=== PATIENT | male | born 2000 | race Caucasian/White ===

== ENCOUNTER → 2020-01-31 | Outpatient (CLI) | payer BC, MEDICAID | LOC: ZCOL.LAB 13:29 | DX: R19.4 Change in bowel habit (principal) ==

== ENCOUNTER 2020-02-13 18:07 | Emergency (ER) | payer BC, MEDICAID ==
[~2020-02-13] VITALS: Ht 165.1 cm; Wt 81.8 kg
[2020-02-13 18:21] LABS: COLLECTION METHOD CLEAN CATCH
[2020-02-13 18:32] LABS: PH 6 (5-8); SQUAMOUS EPITHELIAL None Seen /hpf; URINE APPEARANCE Clear; URINE BACTERIA None Seen /hpf; URINE BILIRUBIN Negative (NEGATIVE); URINE BLOOD 1+ (NEGATIVE); URINE COLOR Straw; URINE GLUCOSE 3+ (NEGATIVE); URINE KETONE Negative (NEGATIVE); URINE LEUKOCYTE ESTERASE Negative (NEGATIVE); URINE NITRATE Negative (NEGATIVE); URINE PROTEIN(semi-quant) Negative (NEGATIVE); URINE RBC 0-2 /hpf; URINE UROBILINOGEN Negative (NEGATIVE)
[2020-02-13 18:54] LABS: TRICYCLIC ANTIDEPRESS URINE NEGATIVE
[2020-02-13 19:33] LABS: BASO % 0.5 % (0.0-2.0); EOS # 0.1 (0.0-0.7); EOS % 0.8 % (0-4.0); GRAN # 4.9 (1.4-6.5); GRAN % 56.3 % (42.2-75.2); HEMATOCRIT 48.4 % (42.0-52.0); HEMOGLOBIN 16.6 g/dl (13.5-18.0); LYMPH # 2.7 (1.2-3.4); LYMPH % 30.9 % (20.0-51.0); MEAN CELL VOLUME 95 fl (80.0-100.0); MEAN CORPUSCULAR HEMOGLOBIN 33 pg (27.0-31.0); MEAN CORPUSCULAR HGB CONC 34 g/dl (33.0-37.0); MEAN PLATELET VOLUME 12.6 fl (7.4-10.4); PLATELET COUNT 184 K/mm3 (130-400); RED BLOOD COUNT 5.11 M/mm3 (4.20-5.60); REDCELL DISTRIBUTION WIDTH-CV 13.6 % (11.5-14.5)
[2020-02-13 19:43] LABS: ALANINE AMINOTRANSFERASE 62 U/L (4-49); ALBUMIN 4.7 gm/dL (3.5-5.0); ALKALINE PHOSPHATASE 144 U/L (50-136); ANION GAP 10 mmol/L (7-16); AST,SGOT 40 U/L (15-37); BILIRUBIN,TOTAL 0.4 mg/dL (0.0-1.0); BLOOD UREA NITROGEN 13 mg/dL (9-20); CALCIUM 9.6 mg/dL (8.4-10.2); CARBON DIOXIDE 28 mmol/L (22-30); CHLORIDE 102 mmol/L (98-107); CREATININE, serum 0.91 (0.66-1.25); GLUCOSE 182 mg/dL (74-106); POTASSIUM 4.1 mmol/L (3.4-5.0); SODIUM 140 mmol/L (137-145); TOTAL PROTEIN 7.8 gm/dL (6.4-8.2)
[2020-02-13 19:44] LABS: ACETAMINOPHEN < 10 ug/mL (10-30); ALCOHOL(ethanol),MEDICAL < 10 mg/dL; SALICYLATE < 1.0 mg/dL
[2020-02-14 00:05] VITALS: TEMP 98.4
[2020-02-14 04:55] VITALS: BP 144/87; PULSE 94
== END 2020-02-14 04:55 ==
LOC: COL.ER 18:07
PROVIDERS: Nurse Practitioner
DX: R45.851 Suicidal ideations (principal); F32.9 Major depressive disorder, single episode, unspecified; Z20.828 Contact with and (suspected) exposure to other viral communicable diseases

== ENCOUNTER 2020-02-26 12:42 | Emergency (ER) | payer BC, MEDICAID ==
[~2020-02-26] VITALS: Ht 167.6 cm; Wt 81.8 kg
[2020-02-26 13:04] VITALS: TEMP 98.2
[2020-02-26 13:31] LABS: COLLECTION METHOD CLEAN CATCH
[2020-02-26 13:45] LABS: BASO # 0.1 (0.0-0.2); BASO % 1.1 % (0.0-2.0); EOS # 0.1 (0.0-0.7); EOS % 1.8 % (0-4.0); GRAN % 49.2 % (42.2-75.2); HEMATOCRIT 45.2 % (42.0-52.0); HEMOGLOBIN 15.7 g/dl (13.5-18.0); LYMPH # 2.3 (1.2-3.4); LYMPH % 37.2 % (20.0-51.0); MEAN CELL VOLUME 91 fl (80.0-100.0); MEAN CORPUSCULAR HEMOGLOBIN 32 pg (27.0-31.0); MEAN CORPUSCULAR HGB CONC 35 g/dl (33.0-37.0); MEAN PLATELET VOLUME 12.3 fl (7.4-10.4); MONO # 0.6 (0.1-0.6); MONO % 10.5 % (1.7-9.3); PLATELET COUNT 212 K/mm3 (130-400); RED BLOOD COUNT 4.96 M/mm3 (4.20-5.60); REDCELL DISTRIBUTION WIDTH-CV 13.2 % (11.5-14.5)
[2020-02-26 13:48] LABS: MUCOUS Present /lpf; PH 6 (5-8); SQUAMOUS EPITHELIAL None Seen /hpf; URINE APPEARANCE Clear; URINE BACTERIA None Seen /hpf; URINE BILIRUBIN Negative (NEGATIVE); URINE BLOOD Negative (NEGATIVE); URINE COLOR Straw; URINE GLUCOSE Negative (NEGATIVE); URINE KETONE Negative (NEGATIVE); URINE LEUKOCYTE ESTERASE Negative (NEGATIVE); URINE NITRATE Negative (NEGATIVE); URINE PROTEIN(semi-quant) Negative (NEGATIVE); URINE RBC 0-2 /hpf; URINE UROBILINOGEN Negative (NEGATIVE)
[2020-02-26 13:57] LABS: ALANINE AMINOTRANSFERASE 92 U/L (4-49); ALBUMIN 4.5 gm/dL (3.5-5.0); ALKALINE PHOSPHATASE 125 U/L (50-136); ANION GAP 11 mmol/L (7-16); AST,SGOT 59 U/L (15-37); BILIRUBIN,TOTAL 0.7 mg/dL (0.0-1.0); BLOOD UREA NITROGEN 11 mg/dL (9-20); CALCIUM 9.6 mg/dL (8.4-10.2); CARBON DIOXIDE 25 mmol/L (22-30); CHLORIDE 103 mmol/L (98-107); CREATININE, serum 0.82 (0.66-1.25); GLUCOSE 116 mg/dL (74-106); SODIUM 138 mmol/L (137-145); TOTAL PROTEIN 7.7 gm/dL (6.4-8.2)
[2020-02-26 14:05] LABS: TRICYCLIC ANTIDEPRESS URINE NEGATIVE
[2020-02-26 14:14] LABS: ACETAMINOPHEN < 10 ug/mL (10-30); ALCOHOL(ethanol),MEDICAL < 10 mg/dL; SALICYLATE < 1.0 mg/dL
[2020-02-26 22:42] VITALS: BP 143/92; PULSE 100
== END 2020-02-26 22:41 | disposition short-term general hospital (02) ==
LOC: COL.ER 12:42
PROVIDERS: Nurse Practitioner
DX: R45.851 Suicidal ideations (principal); F17.200 Nicotine dependence, unspecified, uncomplicated

== ENCOUNTER 2020-03-12 10:27 | Emergency (ER) | payer BC, MEDICAID ==
[~2020-03-12] VITALS: Ht 162.6 cm; Wt 81.8 kg
[2020-03-12 10:38] VITALS: BP 140/77; TEMP 97.9
[2020-03-12 10:52] LABS: COLLECTION METHOD CLEAN CATCH
[2020-03-12 11:02] LABS: PH 5 (5-8); SQUAMOUS EPITHELIAL None Seen /hpf; URINE APPEARANCE Clear; URINE BACTERIA None Seen /hpf; URINE BILIRUBIN Negative (NEGATIVE); URINE BLOOD 1+ (NEGATIVE); URINE COLOR Yellow; URINE GLUCOSE Negative (NEGATIVE); URINE KETONE Negative (NEGATIVE); URINE LEUKOCYTE ESTERASE Negative (NEGATIVE); URINE NITRATE Negative (NEGATIVE); URINE PROTEIN(semi-quant) Negative (NEGATIVE); URINE RBC 0-2 /hpf; URINE UROBILINOGEN Negative (NEGATIVE)
[2020-03-12 11:35] LABS: TRICYCLIC ANTIDEPRESS URINE NEGATIVE
[2020-03-12 12:35] LABS: BASO % 0.7 % (0.0-2.0); EOS # 0.2 (0.0-0.7); EOS % 2.7 % (0-4.0); GRAN # 3.2 (1.4-6.5); GRAN % 53.6 % (42.2-75.2); HEMATOCRIT 47.4 % (42.0-52.0); MEAN CELL VOLUME 92 fl (80.0-100.0); MEAN CORPUSCULAR HEMOGLOBIN 31 pg (27.0-31.0); MEAN CORPUSCULAR HGB CONC 34 g/dl (33.0-37.0); MEAN PLATELET VOLUME 12.2 fl (7.4-10.4); MONO # 0.5 (0.1-0.6); MONO % 8.3 % (1.7-9.3); PLATELET COUNT 224 K/mm3 (130-400); RED BLOOD COUNT 5.15 M/mm3 (4.20-5.60); REDCELL DISTRIBUTION WIDTH-CV 13.1 % (11.5-14.5)
[2020-03-12 13:01] LABS: ALCOHOL(ethanol),MEDICAL < 10 mg/dL
[2020-03-12 14:17] VITALS: PULSE 93
[2020-03-12 14:29] LABS: ALANINE AMINOTRANSFERASE 65 U/L (4-49); ALBUMIN 4.8 gm/dL (3.5-5.0); ALKALINE PHOSPHATASE 129 U/L (50-136); ANION GAP 13 mmol/L (7-16); AST,SGOT 60 U/L (15-37); BILIRUBIN,TOTAL 0.6 mg/dL (0.0-1.0); BLOOD UREA NITROGEN 12 mg/dL (9-20); CALCIUM 10.3 mg/dL (8.4-10.2); CARBON DIOXIDE 25 mmol/L (22-30); CHLORIDE 103 mmol/L (98-107); CREATININE, serum 0.99 (0.66-1.25); GLUCOSE 83 mg/dL (74-106); POTASSIUM 4.1 mmol/L (3.4-5.0); SODIUM 142 mmol/L (137-145); TOTAL PROTEIN 8.6 gm/dL (6.4-8.2)
[2020-03-12 14:40] LABS: ACETAMINOPHEN < 10 ug/mL (10-30); SALICYLATE < 1.0 mg/dL
== END 2020-03-12 14:10 | disposition home or self-care (01) ==
LOC: COL.ER 10:27
PROVIDERS: Physician Assistant
DX: R45.851 Suicidal ideations (principal); F17.210 Nicotine dependence, cigarettes, uncomplicated

== ENCOUNTER 2020-03-16 13:14 | Emergency (ER) | payer BC, MEDICAID ==
[~2020-03-16] VITALS: Ht 165.1 cm; Wt 81.8 kg
[2020-03-16 14:01] LABS: COLLECTION METHOD CLEAN CATCH
[2020-03-16 14:11] LABS: PH 6 (5-8); SQUAMOUS EPITHELIAL None Seen /hpf; URINE APPEARANCE Clear; URINE BACTERIA None Seen /hpf; URINE BILIRUBIN Negative (NEGATIVE); URINE BLOOD Negative (NEGATIVE); URINE COLOR Yellow; URINE GLUCOSE Negative (NEGATIVE); URINE KETONE Negative (NEGATIVE); URINE LEUKOCYTE ESTERASE Negative (NEGATIVE); URINE NITRATE Negative (NEGATIVE); URINE PROTEIN(semi-quant) Negative (NEGATIVE); URINE RBC 0-2 /hpf; URINE UROBILINOGEN Negative (NEGATIVE)
[2020-03-16 14:16] LABS: BASO # 0.1 (0.0-0.2); BASO % 0.8 % (0.0-2.0); EOS # 0.2 (0.0-0.7); EOS % 2.2 % (0-4.0); GRAN # 3.8 (1.4-6.5); GRAN % 43.3 % (42.2-75.2); HEMATOCRIT 43.2 % (42.0-52.0); LYMPH # 3.7 (1.2-3.4); LYMPH % 42.7 % (20.0-51.0); MEAN CELL VOLUME 89 fl (80.0-100.0); MEAN CORPUSCULAR HEMOGLOBIN 31 pg (27.0-31.0); MEAN CORPUSCULAR HGB CONC 35 g/dl (33.0-37.0); MEAN PLATELET VOLUME 11.3 fl (7.4-10.4); MONO # 0.9 (0.1-0.6); MONO % 10.4 % (1.7-9.3); PLATELET COUNT 296 K/mm3 (130-400); RED BLOOD COUNT 4.84 M/mm3 (4.20-5.60); REDCELL DISTRIBUTION WIDTH-CV 12.7 % (11.5-14.5)
[2020-03-16 14:20] LABS: TRICYCLIC ANTIDEPRESS URINE NEGATIVE
[2020-03-16 14:39] LABS: ALCOHOL(ethanol),MEDICAL < 10 mg/dL
[2020-03-16 14:48] LABS: ACETAMINOPHEN < 10 ug/mL (10-30); ALANINE AMINOTRANSFERASE 59 U/L (4-49); ALBUMIN 4.5 gm/dL (3.5-5.0); ALKALINE PHOSPHATASE 122 U/L (50-136); ANION GAP 12 mmol/L (7-16); AST,SGOT 38 U/L (15-37); BILIRUBIN,TOTAL 0.7 mg/dL (0.0-1.0); BLOOD UREA NITROGEN 12 mg/dL (9-20); CALCIUM 9.5 mg/dL (8.4-10.2); CARBON DIOXIDE 23 mmol/L (22-30); CHLORIDE 104 mmol/L (98-107); CREATININE, serum 1.03 (0.66-1.25); GLUCOSE 82 mg/dL (74-106); POTASSIUM 3.7 mmol/L (3.4-5.0); SALICYLATE < 1.0 mg/dL; SODIUM 140 mmol/L (137-145)
[2020-03-16 19:15] VITALS: BP 134/88; PULSE 90; TEMP 97.9
== END 2020-03-16 19:15 | disposition home or self-care (01) ==
LOC: COL.ER 13:14
PROVIDERS: Physician Assistant
DX: R45.851 Suicidal ideations (principal); F17.210 Nicotine dependence, cigarettes, uncomplicated

== ENCOUNTER 2020-04-27 20:09 | Emergency (ER) | payer MEDICAID ==
[~2020-04-27] VITALS: Ht 165.1 cm; Wt 81.8 kg
[2020-04-27 20:52] LABS: BASO # 0.1 (0.0-0.2); BASO % 0.8 % (0.0-2.0); EOS # 0.1 (0.0-0.7); EOS % 1.9 % (0-4.0); GRAN # 4.1 (1.4-6.5); GRAN % 55.6 % (42.2-75.2); HEMATOCRIT 46.8 % (42.0-52.0); HEMOGLOBIN 15.7 g/dl (13.5-18.0); LYMPH # 2.3 (1.2-3.4); LYMPH % 31.4 % (20.0-51.0); MEAN CELL VOLUME 91 fl (80.0-100.0); MEAN CORPUSCULAR HEMOGLOBIN 30 pg (27.0-31.0); MEAN CORPUSCULAR HGB CONC 34 g/dl (33.0-37.0); MEAN PLATELET VOLUME 12.6 fl (7.4-10.4); MONO # 0.8 (0.1-0.6); MONO % 10.2 % (1.7-9.3); PLATELET COUNT 224 K/mm3 (130-400); RED BLOOD COUNT 5.16 M/mm3 (4.20-5.60)
[2020-04-27 21:02] LABS: ALANINE AMINOTRANSFERASE 124 U/L (4-49); ALBUMIN 4.8 gm/dL (3.5-5.0); ALKALINE PHOSPHATASE 120 U/L (50-136); ANION GAP 12 mmol/L (7-16); AST,SGOT 60 U/L (15-37); BILIRUBIN,TOTAL 0.7 mg/dL (0.0-1.0); BLOOD UREA NITROGEN 18 mg/dL (9-20); CALCIUM 9.6 mg/dL (8.4-10.2); CARBON DIOXIDE 21 mmol/L (22-30); CHLORIDE 105 mmol/L (98-107); CREATININE, serum 0.89 (0.66-1.25); GLUCOSE 112 mg/dL (74-106); POTASSIUM 4.3 mmol/L (3.4-5.0); SODIUM 139 mmol/L (137-145); TOTAL PROTEIN 8.3 gm/dL (6.4-8.2)
[2020-04-27 21:02] LABS: COLLECTION METHOD CLEAN CATCH
[2020-04-27 21:03] LABS: ACETAMINOPHEN < 10 ug/mL (10-30); ALCOHOL(ethanol),MEDICAL < 10 mg/dL; SALICYLATE < 1.0 mg/dL
[2020-04-27 21:10] LABS: MUCOUS Present /lpf; PH 7 (5-8); SQUAMOUS EPITHELIAL None Seen /hpf; URINE APPEARANCE Clear; URINE BACTERIA None Seen /hpf; URINE BILIRUBIN Negative (NEGATIVE); URINE BLOOD Negative (NEGATIVE); URINE COLOR Yellow; URINE GLUCOSE Negative (NEGATIVE); URINE KETONE Negative (NEGATIVE); URINE LEUKOCYTE ESTERASE Negative (NEGATIVE); URINE NITRATE Negative (NEGATIVE); URINE PROTEIN(semi-quant) Negative (NEGATIVE); URINE RBC 0-2 /hpf; URINE UROBILINOGEN Negative (NEGATIVE)
[2020-04-27 21:25] LABS: TRICYCLIC ANTIDEPRESS URINE NEGATIVE
[2020-04-27 21:32] LABS: TSH w REFLEX 0.959 uIU/mL (0.465-4.680)
[2020-04-28 07:48] VITALS: BP 167/92; PULSE 96; TEMP 98
== END 2020-04-28 07:50 ==
LOC: COL.ER 20:09
PROVIDERS: Emergency Medicine
DX: R45.851 Suicidal ideations (principal); Z20.822 Contact with and (suspected) exposure to COVID-19

== ENCOUNTER 2020-05-10 16:11 | Emergency (ER) | payer MEDICAID ==
[~2020-05-10] VITALS: Ht 165.1 cm; Wt 95.5 kg
[2020-05-10 16:26] VITALS: TEMP 97.8
[2020-05-10 16:59] LABS: COLLECTION METHOD CLEAN CATCH
[2020-05-10 17:10] LABS: PH 6 (5-8); SQUAMOUS EPITHELIAL None Seen /hpf; URINE APPEARANCE Clear; URINE BACTERIA None Seen /hpf; URINE BILIRUBIN Negative (NEGATIVE); URINE BLOOD Negative (NEGATIVE); URINE COLOR Straw; URINE GLUCOSE Negative (NEGATIVE); URINE KETONE Negative (NEGATIVE); URINE LEUKOCYTE ESTERASE Negative (NEGATIVE); URINE NITRATE Negative (NEGATIVE); URINE PROTEIN(semi-quant) Negative (NEGATIVE); URINE RBC 0-2 /hpf; URINE UROBILINOGEN Negative (NEGATIVE)
[2020-05-10 17:23] LABS: BASO # 0.1 (0.0-0.2); BASO % 0.9 % (0.0-2.0); EOS % 0.3 % (0-4.0); GRAN # 3.8 (1.4-6.5); GRAN % 59.4 % (42.2-75.2); HEMATOCRIT 48.6 % (42.0-52.0); HEMOGLOBIN 16.5 g/dl (13.5-18.0); LYMPH # 1.9 (1.2-3.4); LYMPH % 30.5 % (20.0-51.0); MEAN CELL VOLUME 89 fl (80.0-100.0); MEAN CORPUSCULAR HEMOGLOBIN 30 pg (27.0-31.0); MEAN CORPUSCULAR HGB CONC 34 g/dl (33.0-37.0); MONO # 0.6 (0.1-0.6); MONO % 8.7 % (1.7-9.3); PLATELET COUNT 231 K/mm3 (130-400); RED BLOOD COUNT 5.46 M/mm3 (4.20-5.60); REDCELL DISTRIBUTION WIDTH-CV 13.9 % (11.5-14.5)
[2020-05-10 17:28] LABS: TRICYCLIC ANTIDEPRESS URINE NEGATIVE
[2020-05-10 17:35] LABS: ALANINE AMINOTRANSFERASE 107 U/L (4-49); ALBUMIN 5.1 gm/dL (3.5-5.0); ALKALINE PHOSPHATASE 116 U/L (50-136); ANION GAP 10 mmol/L (7-16); AST,SGOT 50 U/L (15-37); BILIRUBIN,TOTAL 0.9 mg/dL (0.0-1.0); BLOOD UREA NITROGEN 7 mg/dL (9-20); CALCIUM 9.9 mg/dL (8.4-10.2); CARBON DIOXIDE 26 mmol/L (22-30); CHLORIDE 104 mmol/L (98-107); CREATININE, serum 0.95 (0.66-1.25); GLUCOSE 87 mg/dL (74-106); POTASSIUM 3.7 mmol/L (3.4-5.0); SODIUM 140 mmol/L (137-145); TOTAL PROTEIN 8.8 gm/dL (6.4-8.2)
[2020-05-10 17:40] LABS: ACETAMINOPHEN < 10 ug/mL (10-30); ALCOHOL(ethanol),MEDICAL < 10 mg/dL; SALICYLATE < 1.0 mg/dL
[2020-05-10 19:00] VITALS: BP 130/80; PULSE 88
== END 2020-05-10 19:00 | disposition home or self-care (01) ==
LOC: COL.ER 16:11
PROVIDERS: Nurse Practitioner
DX: R45.851 Suicidal ideations (principal); Z87.891 Personal history of nicotine dependence

== ENCOUNTER 2020-06-01 10:02 | Emergency (ER) | payer MEDICAID ==
[~2020-06-01] VITALS: Ht 165.1 cm; Wt 95.5 kg
[2020-06-01 10:10] VITALS: BP 132/82; TEMP 98
[2020-06-01] MEDS ORDERED: AMOXICILLIN 8751 TAB PO (11:20)
[2020-06-01 11:38] VITALS: PULSE 102
== END 2020-06-01 11:38 | disposition home or self-care (01) ==
LOC: COL.ER 10:02
DX: S61.253A Open bite of left middle finger without damage to nail, initial encounter (principal); W50.3XXA Accidental bite by another person, initial encounter

== ENCOUNTER 2020-06-01 19:06 | Emergency (ER) | payer MEDICAID ==
[~2020-06-01] VITALS: Ht 165.1 cm; Wt 95.5 kg
[~2020-06-01 19:06] MED LIST: AMOXICILLIN 8751 TAB PO
[2020-06-01 19:08] VITALS: TEMP 97.1
[2020-06-01 19:44] LABS: COLLECTION METHOD CLEAN CATCH
[2020-06-01 19:51] LABS: BASO # 0.1 (0.0-0.2); BASO % 0.7 % (0.0-2.0); EOS % 0.4 % (0-4.0); GRAN # 3.8 (1.4-6.5); GRAN % 56.1 % (42.2-75.2); HEMATOCRIT 49.4 % (42.0-52.0); HEMOGLOBIN 16.9 g/dl (13.5-18.0); LYMPH # 2.4 (1.2-3.4); MEAN CELL VOLUME 89 fl (80.0-100.0); MEAN CORPUSCULAR HEMOGLOBIN 30 pg (27.0-31.0); MEAN CORPUSCULAR HGB CONC 34 g/dl (33.0-37.0); MEAN PLATELET VOLUME 12.7 fl (7.4-10.4); MONO # 0.5 (0.1-0.6); MONO % 7.7 % (1.7-9.3); PLATELET COUNT 182 K/mm3 (130-400); RED BLOOD COUNT 5.58 M/mm3 (4.20-5.60); REDCELL DISTRIBUTION WIDTH-CV 13.7 % (11.5-14.5)
[2020-06-01 19:52] LABS: PH 7 (5-8); SQUAMOUS EPITHELIAL None Seen /hpf; URINE APPEARANCE Clear; URINE BACTERIA Rare /hpf; URINE BILIRUBIN Negative (NEGATIVE); URINE BLOOD Negative (NEGATIVE); URINE COLOR Yellow; URINE GLUCOSE Negative (NEGATIVE); URINE KETONE Negative (NEGATIVE); URINE LEUKOCYTE ESTERASE Negative (NEGATIVE); URINE NITRATE Negative (NEGATIVE); URINE PROTEIN(semi-quant) Negative (NEGATIVE); URINE RBC 0-2 /hpf; URINE UROBILINOGEN Negative (NEGATIVE)
[2020-06-01 19:59] LABS: ALANINE AMINOTRANSFERASE 100 U/L (4-49); ALBUMIN 4.8 gm/dL (3.5-5.0); ALKALINE PHOSPHATASE 118 U/L (50-136); ANION GAP 12 mmol/L (7-16); AST,SGOT 53 U/L (15-37); BILIRUBIN,TOTAL 0.7 mg/dL (0.0-1.0); BLOOD UREA NITROGEN 8 mg/dL (9-20); CALCIUM 9.6 mg/dL (8.4-10.2); CARBON DIOXIDE 25 mmol/L (22-30); CHLORIDE 103 mmol/L (98-107); CREATININE, serum 1.02 (0.66-1.25); GLUCOSE 103 mg/dL (74-106); POTASSIUM 3.5 mmol/L (3.4-5.0); SODIUM 141 mmol/L (137-145); TOTAL PROTEIN 7.9 gm/dL (6.4-8.2)
[2020-06-01 20:03] LABS: ACETAMINOPHEN < 10 ug/mL (10-30); ALCOHOL(ethanol),MEDICAL < 10 mg/dL; SALICYLATE < 1.0 mg/dL
[2020-06-01 20:19] LABS: TRICYCLIC ANTIDEPRESS URINE NEGATIVE
[2020-06-02 00:07] LABS: BASO % 0.4 % (0.0-2.0); EOS # 0.1 (0.0-0.7); EOS % 0.7 % (0-4.0); GRAN # 3.2 (1.4-6.5); GRAN % 43.9 % (42.2-75.2); HEMATOCRIT 48.3 % (42.0-52.0); HEMOGLOBIN 16.6 g/dl (13.5-18.0); LYMPH # 3.5 (1.2-3.4); LYMPH % 47.4 % (20.0-51.0); MEAN CELL VOLUME 88 fl (80.0-100.0); MEAN CORPUSCULAR HEMOGLOBIN 30 pg (27.0-31.0); MEAN CORPUSCULAR HGB CONC 34 g/dl (33.0-37.0); MEAN PLATELET VOLUME 12.7 fl (7.4-10.4); MONO # 0.6 (0.1-0.6); MONO % 7.5 % (1.7-9.3); PLATELET COUNT 194 K/mm3 (130-400); RED BLOOD COUNT 5.51 M/mm3 (4.20-5.60); REDCELL DISTRIBUTION WIDTH-CV 13.7 % (11.5-14.5)
[2020-06-02 00:18] LABS: ALANINE AMINOTRANSFERASE 92 U/L (4-49); ALBUMIN 4.4 gm/dL (3.5-5.0); ALKALINE PHOSPHATASE 124 U/L (50-136); ANION GAP 12 mmol/L (7-16); AST,SGOT 45 U/L (15-37); BILIRUBIN,TOTAL 0.8 mg/dL (0.0-1.0); BLOOD UREA NITROGEN 7 mg/dL (9-20); CALCIUM 9.1 mg/dL (8.4-10.2); CARBON DIOXIDE 21 mmol/L (22-30); CHLORIDE 107 mmol/L (98-107); CREATININE, serum 0.88 (0.66-1.25); GLUCOSE 107 mg/dL (74-106); POTASSIUM 3.5 mmol/L (3.4-5.0); SODIUM 139 mmol/L (137-145); TOTAL PROTEIN 7.4 gm/dL (6.4-8.2)
[2020-06-02 00:22] LABS: ACETAMINOPHEN < 10 ug/mL (10-30)
[2020-06-02 10:23] VITALS: BP 131/95; PULSE 95
== END 2020-06-02 10:36 | disposition home or self-care (01) ==
LOC: COL.ER 19:06
PROVIDERS: Family Medicine
DX: T39.312A Poisoning by propionic acid derivatives, intentional self-harm, initial encounter (principal); T39.392A Poisoning by other nonsteroidal anti-inflammatory drugs [NSAID], intentional self-harm, initial encounter; F32.9 Major depressive disorder, single episode, unspecified
CPT/HCPCS: J7030

== ENCOUNTER 2020-06-10 20:25 | Emergency (ER) | payer MEDICAID ==
[~2020-06-10] VITALS: Ht 165.1 cm; Wt 90.9 kg
[2020-06-10 20:30] VITALS: TEMP 98.2
[2020-06-10 21:00] LABS: COLLECTION METHOD CLEAN CATCH
[2020-06-10 21:09] LABS: PH 7 (5-8); SQUAMOUS EPITHELIAL None Seen /hpf; URINE APPEARANCE Clear; URINE BACTERIA None Seen /hpf; URINE BILIRUBIN Negative (NEGATIVE); URINE BLOOD Negative (NEGATIVE); URINE COLOR Straw; URINE GLUCOSE Negative (NEGATIVE); URINE KETONE Negative (NEGATIVE); URINE LEUKOCYTE ESTERASE Negative (NEGATIVE); URINE NITRATE Negative (NEGATIVE); URINE PROTEIN(semi-quant) Negative (NEGATIVE); URINE RBC 0-2 /hpf; URINE UROBILINOGEN Negative (NEGATIVE); URINE WBC 0-2 /hpf
[2020-06-10 21:30] LABS: BASO # 0.1 (0.0-0.2); BASO % 0.7 % (0.0-2.0); EOS # 0.1 (0.0-0.7); EOS % 0.7 % (0-4.0); GRAN % 44.7 % (42.2-75.2); HEMATOCRIT 47.3 % (42.0-52.0); HEMOGLOBIN 16.4 g/dl (13.5-18.0); LYMPH % 43.6 % (20.0-51.0); MEAN CELL VOLUME 87 fl (80.0-100.0); MEAN CORPUSCULAR HEMOGLOBIN 30 pg (27.0-31.0); MEAN CORPUSCULAR HGB CONC 35 g/dl (33.0-37.0); MEAN PLATELET VOLUME 12.4 fl (7.4-10.4); MONO # 0.7 (0.1-0.6); MONO % 10.2 % (1.7-9.3); PLATELET COUNT 193 K/mm3 (130-400); RED BLOOD COUNT 5.44 M/mm3 (4.20-5.60); REDCELL DISTRIBUTION WIDTH-CV 13.9 % (11.5-14.5)
[2020-06-10 21:40] LABS: ALANINE AMINOTRANSFERASE 84 U/L (4-49); ALBUMIN 4.6 gm/dL (3.5-5.0); ALKALINE PHOSPHATASE 113 U/L (50-136); ANION GAP 12 mmol/L (7-16); AST,SGOT 45 U/L (15-37); BILIRUBIN,TOTAL 0.9 mg/dL (0.0-1.0); BLOOD UREA NITROGEN 8 mg/dL (9-20); CALCIUM 9.4 mg/dL (8.4-10.2); CARBON DIOXIDE 22 mmol/L (22-30); CHLORIDE 104 mmol/L (98-107); GLUCOSE 95 mg/dL (74-106); POTASSIUM 3.6 mmol/L (3.4-5.0); SODIUM 139 mmol/L (137-145); TOTAL PROTEIN 8.1 gm/dL (6.4-8.2)
[2020-06-10 21:44] LABS: ALCOHOL(ethanol),MEDICAL < 10 mg/dL; SALICYLATE < 1.0 mg/dL
[2020-06-10 21:45] LABS: TRICYCLIC ANTIDEPRESS URINE NEGATIVE
[2020-06-10] MEDS ORDERED: DESYREL 50MG50 MG PO (21:52)
[2020-06-11 08:20] VITALS: BP 140/84; PULSE 96
== END 2020-06-11 08:20 | disposition home or self-care (01) ==
LOC: COL.ER 20:25
PROVIDERS: Emergency Medicine
DX: T39.1X2A Poisoning by 4-Aminophenol derivatives, intentional self-harm, initial encounter (principal); T39.312A Poisoning by propionic acid derivatives, intentional self-harm, initial encounter

== ENCOUNTER 2020-06-17 18:48 | Emergency (ER) | payer MEDICAID ==
[~2020-06-17] VITALS: Ht 162.6 cm; Wt 95.5 kg
[~2020-06-17 18:48] MED LIST changes: +DESYREL 50MG50 MG PO
[2020-06-17 19:20] LABS: COLLECTION METHOD CLEAN CATCH
[2020-06-17 19:25] LABS: PH 6 (5-8); SQUAMOUS EPITHELIAL None Seen /hpf; URINE APPEARANCE Clear; URINE BACTERIA None Seen /hpf; URINE BILIRUBIN Negative (NEGATIVE); URINE BLOOD Negative (NEGATIVE); URINE COLOR Yellow; URINE GLUCOSE Negative (NEGATIVE); URINE KETONE Negative (NEGATIVE); URINE LEUKOCYTE ESTERASE Negative (NEGATIVE); URINE NITRATE Negative (NEGATIVE); URINE PROTEIN(semi-quant) Negative (NEGATIVE); URINE RBC 0-2 /hpf; URINE UROBILINOGEN Negative (NEGATIVE)
[2020-06-17 19:43] LABS: TRICYCLIC ANTIDEPRESS URINE NEGATIVE
[2020-06-17 20:15] LABS: BASO % 0.5 % (0.0-2.0); EOS % 0.2 % (0-4.0); GRAN # 3.1 (1.4-6.5); GRAN % 52.3 % (42.2-75.2); HEMATOCRIT 48.3 % (42.0-52.0); HEMOGLOBIN 16.3 g/dl (13.5-18.0); LYMPH # 2.3 (1.2-3.4); MEAN CELL VOLUME 89 fl (80.0-100.0); MEAN CORPUSCULAR HEMOGLOBIN 30 pg (27.0-31.0); MEAN CORPUSCULAR HGB CONC 34 g/dl (33.0-37.0); MEAN PLATELET VOLUME 12.7 fl (7.4-10.4); MONO # 0.5 (0.1-0.6); MONO % 7.8 % (1.7-9.3); PLATELET COUNT 182 K/mm3 (130-400); RED BLOOD COUNT 5.45 M/mm3 (4.20-5.60); REDCELL DISTRIBUTION WIDTH-CV 14.2 % (11.5-14.5)
[2020-06-17 20:26] LABS: ALANINE AMINOTRANSFERASE 93 U/L (4-49); ALBUMIN 4.6 gm/dL (3.5-5.0); ALKALINE PHOSPHATASE 108 U/L (50-136); ANION GAP 12 mmol/L (7-16); AST,SGOT 47 U/L (15-37); BLOOD UREA NITROGEN 7 mg/dL (9-20); CALCIUM 9.5 mg/dL (8.4-10.2); CARBON DIOXIDE 23 mmol/L (22-30); CHLORIDE 104 mmol/L (98-107); CREATININE, serum 0.95 (0.66-1.25); GLUCOSE 104 mg/dL (74-106); POTASSIUM 3.2 mmol/L (3.4-5.0); SODIUM 139 mmol/L (137-145)
[2020-06-17 20:27] LABS: ACETAMINOPHEN < 10 ug/mL (10-30); ALCOHOL(ethanol),MEDICAL < 10 mg/dL; SALICYLATE < 1.0 mg/dL
--- NOTE | 2020-06-18 09:13 | NUR ---
vegetable farmworker contacted Madalyn at [facility] to discuss increased frequency of patient's ED hospitalizations and suicidal ideations. Patient has been to the ED nine times since February 2020. Madalyn stated patient as been in their Unit as many times and they have been discussing options for providing patient with increased support. Worker will await an invite to a meeting with [facility] to determine increase supports for patient. Patient is eligible for Home and Community Based Services and may benefit from [place] [facility] program. Worker notified patient's nurse of the above plans.
[2020-06-18 10:15] VITALS: TEMP 98
[2020-06-18 15:23] VITALS: BP 135/75; PULSE 99
== END 2020-06-19 01:25 | disposition home or self-care (01) ==
LOC: COL.ER 18:48
PROVIDERS: Emergency Medicine
DX: F32.9 Major depressive disorder, single episode, unspecified (principal); E87.6 Hypokalemia; R74.8 Abnormal levels of other serum enzymes; R74.01 Elevation of levels of liver transaminase levels; F17.210 Nicotine dependence, cigarettes, uncomplicated

== ENCOUNTER 2020-08-10 17:31 | Emergency (ER) | payer MEDICAID ==
[~2020-08-10] VITALS: Ht 162.6 cm; Wt 81.8 kg
[2020-08-10 20:19] LABS: BASO # 0.1 (0.0-0.2); BASO % 0.6 % (0.0-2.0); EOS % 0.4 % (0-4.0); GRAN # 3.8 (1.4-6.5); GRAN % 47.3 % (42.2-75.2); HEMATOCRIT 45.9 % (42.0-52.0); LYMPH # 3.5 (1.2-3.4); MEAN CELL VOLUME 87 fl (80.0-100.0); MEAN CORPUSCULAR HEMOGLOBIN 30 pg (27.0-31.0); MEAN CORPUSCULAR HGB CONC 35 g/dl (33.0-37.0); MONO # 0.7 (0.1-0.6); MONO % 8.5 % (1.7-9.3); PLATELET COUNT 186 K/mm3 (130-400); RED BLOOD COUNT 5.26 M/mm3 (4.20-5.60); REDCELL DISTRIBUTION WIDTH-CV 14.5 % (11.5-14.5)
[2020-08-10 20:30] LABS: CALCIUM 8.6 mg/dL (8.4-10.2); CREATININE, serum 0.85 (0.66-1.25); POTASSIUM 3.9 mmol/L (3.4-5.0)
[2020-08-10 20:31] LABS: COLLECTION METHOD CLEAN CATCH
[2020-08-10 20:38] LABS: PH 7 (5-8); SQUAMOUS EPITHELIAL None Seen /hpf; URINE APPEARANCE Clear; URINE BACTERIA None Seen /hpf; URINE BILIRUBIN Negative (NEGATIVE); URINE BLOOD Negative (NEGATIVE); URINE COLOR Colorless; URINE GLUCOSE Negative (NEGATIVE); URINE KETONE Negative (NEGATIVE); URINE LEUKOCYTE ESTERASE Negative (NEGATIVE); URINE NITRATE Negative (NEGATIVE); URINE PROTEIN(semi-quant) Negative (NEGATIVE); URINE RBC None Seen /hpf; URINE UROBILINOGEN Negative (NEGATIVE)
[2020-08-10 21:45] VITALS: BP 129/87; PULSE 87; TEMP 98.5
== END 2020-08-10 21:45 | disposition home or self-care (01) ==
LOC: COL.ER 17:31
PROVIDERS: Physician Assistant
DX: E86.0 Dehydration (principal); F79 Unspecified intellectual disabilities
CPT/HCPCS: J7030

== ENCOUNTER 2021-01-05 18:43 | Emergency (ER) | payer MEDICAID ==
[~2021-01-05] VITALS: Ht 162.6 cm; Wt 81.8 kg
[2021-01-05 19:18] VITALS: TEMP 98.2
[2021-01-05 19:53] LABS: BASO % 0.4 % (0.0-2.0); EOS % 0.2 % (0-4.0); GRAN # 7.3 K/mm3 (1.4-6.5); GRAN % 79.6 % (42.2-75.2); HEMOGLOBIN 17.8 g/dl (13.5-18.0); LYMPH # 1.3 K/mm3 (1.2-3.4); LYMPH % 14.1 % (20.0-51.0); MEAN CELL VOLUME 88 fl (80.0-100.0); MEAN CORPUSCULAR HEMOGLOBIN 31 pg (27.0-31.0); MEAN CORPUSCULAR HGB CONC 36 g/dl (33.0-37.0); MEAN PLATELET VOLUME 12.4 fl (7.4-10.4); MONO # 0.5 K/mm3 (0.1-0.6); MONO % 5.5 % (1.7-9.3); PLATELET COUNT 168 K/mm3 (130-400); RED BLOOD COUNT 5.71 M/mm3 (4.20-5.60); REDCELL DISTRIBUTION WIDTH-CV 13.7 % (11.5-14.5)
[2021-01-05 20:11] LABS: ALANINE AMINOTRANSFERASE 21 U/L (0-55); ALBUMIN 4.6 gm/dL (3.5-5.0); ALKALINE PHOSPHATASE 106 U/L (40-150); ANION GAP 11 mmol/L (7-16); AST,SGOT 19 U/L (5-34); BILIRUBIN,TOTAL 0.9 mg/dL (0.2-1.2); BLOOD UREA NITROGEN 6 mg/dL (9-21); CALCIUM 9.9 mg/dL (8.4-10.2); CARBON DIOXIDE 22 mmol/L (22-29); CHLORIDE 104 mmol/L (98-107); CREATININE, serum 0.85 mg/dL (0.72-1.25); GLUCOSE 91 mg/dL (70-99); POTASSIUM 3.3 mmol/L (3.5-4.5); SODIUM 137 mmol/L (136-145)
[2021-01-05 20:14] LABS: COLLECTION METHOD CLEAN CATCH
[2021-01-05 20:17] LABS: ACETAMINOPHEN < 1.0 ug/mL (10-30); ALCOHOL(ethanol),MEDICAL < 10 mg/dL (0-10); SALICYLATE < 5.0 mg/dL (15.0-30.0)
[2021-01-05 20:21] LABS: MUCOUS Present /lpf; PH 6 (5-8); SQUAMOUS EPITHELIAL None Seen /hpf; URINE APPEARANCE Clear; URINE BACTERIA None Seen /hpf; URINE BILIRUBIN Negative (NEGATIVE); URINE BLOOD Negative (NEGATIVE); URINE COLOR Yellow; URINE GLUCOSE Negative (NEGATIVE); URINE KETONE Negative (NEGATIVE); URINE LEUKOCYTE ESTERASE Negative (NEGATIVE); URINE NITRATE Negative (NEGATIVE); URINE PROTEIN(semi-quant) Negative (NEGATIVE); URINE RBC None Seen /hpf; URINE UROBILINOGEN Negative (NEGATIVE)
[2021-01-05 20:35] LABS: TRICYCLIC ANTIDEPRESS URINE NEGATIVE
[2021-01-05 23:14] VITALS: BP 132/84; PULSE 94
== END 2021-01-05 23:14 | disposition home or self-care (01) ==
LOC: COL.ER 18:43
PROVIDERS: Nurse Practitioner
DX: F32.A Depression, unspecified (principal); F41.9 Anxiety disorder, unspecified; F84.0 Autistic disorder; W13.0XXA Fall from, out of or through balcony, initial encounter

== ENCOUNTER 2022-01-12 14:07 | Emergency (ER) | payer MEDICAID ==
[~2022-01-12] VITALS: Ht 165.1 cm; Wt 81.8 kg
[2022-01-12 14:16] VITALS: BP 126/79; PULSE 87; TEMP 97.8
[2022-01-12] MEDS ORDERED: DESYREL DIVIDO300 MG PO (15:40)
[2022-01-12] MEDS ORDERED: LATUDA80 MG PO (15:40)
[2022-01-12] MEDS ORDERED: PROTONIX 40MG T40 MG PO (15:41)
[2022-01-12] MEDS ORDERED: REQUIP 0.5MG0.5 MG PO (15:41)
[2022-01-12] MEDS ORDERED: ZOLOFT 100MG100 MG PO (15:41)
[2022-01-12] MEDS ORDERED: MELATONIN3 M1 (15:42)
== END 2022-01-12 15:55 | disposition home or self-care (01) ==
LOC: COL.ER 14:07
DX: S99.921A Unspecified injury of right foot, initial encounter (principal); W20.8XXA Other cause of strike by thrown, projected or falling object, initial encounter; Y92.59 Other trade areas as the place of occurrence of the external cause; Y99.0 Civilian activity done for income or pay